=== PATIENT | female | born 1965 | race Caucasian/White ===

== ENCOUNTER 2018-12-02 14:10 | Day surgery (SDC) | payer SELFPAY ==
[2018-12-02 15:38] LABS: #Basophils 0.1 thou/uL (0.0-0.2); #Eosinphils 0.1 thou/uL (0.0-0.7); #Lymphocytes 1.9 thou/uL (1.20-3.40); #Monocytes 0.7 thou/uL (0.11-0.59); #Neutrophils 5.5 thou/uL (1.40-6.50); %Basophils 1.1 % (0.0-1.0); %Eosinophils 1.3 % (0.0-10.0); %Monocytes 8.5 % (0.0-10.0); %Neutrophils 66.1 % (42.0-75.0); Hemoglobin 15.5 g/dL (12.0-16.0); Mean Corpuscular Hemoglobin 31.3 pg (27.0-31.0); Mean Corpuscular Volume 97.9 fL (78.0-98.0); Mean Platelet Volume 6.7 fL (7.4-10.4); Platelet Count 348 thou/uL (130-400); RBC Distribution Width 11.4 % (11.5-14.5); Red Blood Cell (RBC) Count 4.96 mill/uL (4.20-5.40); White Blood Cell (WBC) Count 8.4 thou/uL (4.8-10.8)
[2018-12-02] MEDS ORDERED: PROPOFOL 200 MG/20 ML VIAL ONE (16:52)
[2018-12-02] MEDS ORDERED: Ondansetron PF 4 MG/2 ML Vial ONE (16:52)
[2018-12-02] MEDS ORDERED: Lidocaine 1% PF 5 ML VIAL ONE (16:52)
[2018-12-02] MEDS ORDERED: Ketorolac Tromethamine 30 MG/ML VIAL ONE ×2 (16:52→21:18)
[2018-12-02] MEDS ORDERED: Bupivacaine PF 0.5% 30 ML VIAL ONE (18:25)
[2018-12-02] MEDS ORDERED: Bacitracin Zinc Ointment 30 gm TUBE ONE (18:25)
[2018-12-02] MEDS ORDERED: Sodium Chloride 0.9% 0 ML ONE (18:25)
[2018-12-02] MEDS ORDERED: Midazolam HCl 2 mg/2 ml Vial ONE (19:38)
[2018-12-02] MEDS ORDERED: Fentanyl 100 MCG/2 ML VIAL ONE (19:48)
[2018-12-02] MEDS ORDERED: CEFAZOLIN 2 GM/50 ML BAG ONE (19:52)
--- NOTE | 2018-12-02 21:33 | RAD ---
FOUR VIEW THUMB SERIES, RIGHT HAND: 12/02/18 INDICATION: ORIF right thumb. FINDINGS: Intraoperative fluoroscopic imaging reveals K-wire placement at the level of the thumb metacarpal. Th is traverses a fracture lucency at the base of the thumb metacarpal. Correlate with intraoperative fi ndings. IMPRESSION: Intraoperative fluoroscopic imaging for fracture fixation of the thumb metacarpal of the right hand. POS: SANYA
--- NOTE | 2018-12-03 01:44 | OP ---
DATE OF PROCEDURE: 12/02/2018 PREOPERATIVE DIAGNOSIS: 100% displaced proximal third extra-articular metacarpal thumb fracture. POSTOPERATIVE DIAGNOSIS: 100% displaced proximal third extra-articular metacarpal thumb fracture. PROCEDURES PERFORMED: 1. Closed reduction with percutaneous pinning x2, 0.45 K-wires of distal metacarpal base fracture, right. 2. C-arm supervision less than or equal to 1 hour. 3. Application of short-arm splint. TOURNIQUET TIME: None. ESTIMATED BLOOD LOSS: Less than 5 mL. SUPERVISOR FINAL: Kari Velazco, electrician technician. INDICATIONS: 100% displaced fracture seen in clinic, markedly unstable pattern, proximal third thumb metacarpal extra-articular. DESCRIPTION OF PROCEDURE: After successful general LMA technique, the limb was prepped and draped. The patient was then given 10 mL of 0.5% Marcaine block in a metacarpal level block and then underwent a time-out. I then performed a closed reduction and visualized the reduction pattern that could be stable. First plastic wire from proximal to distal, radial to ulna in position just proximal to the fracture and then one from distal radial to proximal ulna, distal shaft down to the fracture line. I performed a closed reduction with anatomic and compressed and held it while engineering assistant, Kari Velazco, passed the K-wire performing a perfect snick maneuver along the sidewall and compressed the fracture. We then passed the distal to proximal wire and it was rotationally frontal sagittal plane, anatomic. The wires were bent with 2 mm tip and then placed just under the skin. Gave another 10 mL of 0.5% Marcaine block placed, bacitracin, Adaptic, 4 x 4, Kerlix, and then a short-arm thumb spica splint. C-arm final pictures confirmed anatomic position maintained after splinting as well. The patient left the operating room without evidence of anesthetic or operative complication. Job ID: [id number]
== END 2018-12-02 22:07 | disposition home or self-care (01) ==
LOC: SDC 14:10
PROVIDERS: ATTEND Orthopaedic Surgery Hand Surgery
PROC: 0PSP34Z Reposition Right Metacarpal with Internal Fixation Device, Percutaneous Approach (ICD-10-PCS; principal; 2018-12-02)
DX: S62.231A Other displaced fracture of base of first metacarpal bone, right hand, initial encounter for closed fracture (principal); F17.200 Nicotine dependence, unspecified, uncomplicated; Z88.5 Allergy status to narcotic agent; V89.2XXA Person injured in unspecified motor-vehicle accident, traffic, initial encounter
CPT/HCPCS: 76000; 85025; J1885; J2001; J2250; J2405; J2704; J3010; J3490; S0020